=== PATIENT | female | born 1955 | race African-American/Black ===

== ENCOUNTER 2016-09-10 00:35 | Emergency (ER) | payer MEDICARE ==
[2016-09-10 01:27] LABS: BASOPHILS 0.2 % (0.0-2.0); EOSINOPHILS 3.6 % (0-7); HEMATOCRIT 37.8 % (36.0-48.0); HEMOGLOBIN 12.4 g/dL (12-16); IMMATURE GRANULOCYTES 0.3 % (0-5); LYMPHOCYTES 48.8 % (15-50); MCH 32.1 pg (26.0-34.0); MCHC 32.8 g/dL (31.0-37.0); MCV 97.9 fL (80.0-100.0); MEAN PLATELET VOLUME 11.4 fL (7.4-10.4); MONOCYTES 16.8 % (2-11); NEUTROPHILS 30.3 % (40-80); RBC 3.86 10x6/uL (4.00-5.40); RDW 14.6 % (11.5-14.5); WBC 5.8 10x3/uL (4.8-10.8)
[2016-09-10 01:51] LABS: PLATELET COUNT 95 10x3/uL (130-400)
[2016-09-10 03:04] LABS: CALC OSMOLALITY 281 mosm/kg (275-300); CALCIUM 8.9 mg/dL (8.5-10.1); CARBON DIOXIDE 33.5 mmol/L (21.0-32.0); CHLORIDE - SERUM 106 mmol/L (98-107); CREATININE - SERUM 0.8 mg/dL (0.6-1.3); GLUCOSE 122 mg/dL (74-106); POTASSIUM - SERUM 3.8 mmol/L (3.5-5.1); SODIUM 142 mmol/L (136-145); UREA NITROGEN 8 mg/dL (7-18); eGFR NON AFRICAN AMERICAN 77 mL/min (90-120)
== END 2016-09-10 05:00 | disposition home or self-care (01) ==
LOC: D.ER 00:35
PROVIDERS: Emergency Medicine
DX: R51 Headache (principal); C56.9 Malignant neoplasm of unspecified ovary